=== PATIENT | female | born 1945 | race Caucasian/White ===

== ENCOUNTER → 2018-07-04 | Outpatient (CLI) | payer OTHER ==
[~2018-07-04] VITALS: Ht 157.5 cm; Wt 77.1 kg
[~2018-07-04] MED LIST: ASPIR 8181 MG PO; CRESTOR5 MG PO; ESCITALOPRAM OX10 MG PO; LOSARTAN POTAS100 MG PO; MOBIC15 MG PO; NORVASC5 MG PO; SYNTHROID25 MC1 PO; VITAMIN D1000 UNI1 PO
--- NOTE | ~2018-07-04 | HPC ---
[facility] [address] [place] [address] PAIN MANAGEMENT CONSULTATION Name: LUIS ANTONIO DAVENPORT Room #: [facility].#: [id number] Admission: 07/04/18 ������������������ Attend Phys: Neri Porras MD Discharge: ������������������ Date of : 43 Report #: [id number] THIS REPORT FOR: //name// CC: Brett Porras DATE OF SERVICE: 07/04/2018 CHIEF COMPLAINT: Low back pain with an electric shock-like sensation that goes into her hip, at times into her calf and toes. HISTORY OF PRESENT ILLNESS: The patient is a hitesh 73-year-old who is here today for the first time at the request of Dr. Izquierdo. He believes she has radiculopathy. Her pain is described by her as erratic, unpredictable and excruciating. When it occurs, it is a 10/10, sharp and stabbing, aching and cramping. It begins off in her left hip and occasionally a little bit higher in the iliac crest. It then can progress down to an area below her patella, into her calf and into her left foot. She has had limited improvement over time. She does not routinely take medication for pain. MEDICATIONS: Amlodipine, losartan and Synthroid. ALLERGIES: PENICILLIN. PAST MEDICAL HISTORY: Remarkable for thyroidectomy and hysterectomy. As a child, she had her tonsils removed. In 2018, she had cataract surgery. Dr. Izquierdo treats her for hypertension. SOCIAL HISTORY: She is retired, . Denies use of tobacco. Drinks alcohol a couple of times a week in a social setting. REVIEW OF SYSTEMS: Positive for fatigue, weakness, loss of hearing, frequent diarrhea and heat and cold intolerance. PHYSICAL EXAMINATION: GENERAL: She is very pleasant, outgoing 73-year-old, alert and oriented, with no signs of depression or anxiety. VITAL SIGNS: Her blood pressure is 148/85, heart rate 56 and respirations 14. She is 5 feet 2 with a BMI of 31.1. We discussed weight loss strategies. MUSCULOSKELETAL: She moves from a sitting to standing position, ambulates without too much discomfort. She has some pain across her low back. Range of motion is limited a bit and rotational movements, flexion and extension do not reproduce pain. Straight leg raising is not markedly painful into the leg today, but she has some pain into the left hip. Sensation and strength are normal. Deep tendon reflexes are 2+ knees, 1+ ankles, bilaterally symmetrical. [facility] [address] [place] [address] PAIN MANAGEMENT CONSULTATION Name: LUIS ANTONIO DAVENPORT Room #: [facility]#: [id number] Admission: 07/04/18 ������������������ Attend Phys: Neri Porras MD Discharge: ������������������ Date of : 43 Report #: [id number] RADIOGRAPHIC DATA: No x-rays are available to me at this time. IMPRESSION: Low back pain with radiculopathy. DISCUSSION: Just long discussion today about radicular pain and its causes. Treatment would be empiric at this time for her left unilateral symptoms radiating into the foot. Discussed risks and benefits of the epidural injection, but she would like to avoid that at this time. I talked about beginning some medication for pain and she would be interested in considering some physical therapy. I have also felt that it might be beneficial to go ahead and begin with a lumbar spine x-ray series just to look for alignment, degenerative disk disease, which may provide us some evidence before ordering a more expensive MRI. She will make her decision on an epidural injection and schedule an appointment in the future. ��������������������������������������������� ���������������������������������������� By: ��������������������������������������������� [id number] Neri Porras MD /nt
[2018-07-04 13:45] VITALS: BP 148/85
--- NOTE | 2018-07-04 13:59 | NUR ---
Pain Clinic Assessment: 1. History of Osteoarthritis: History of Rheumatoid Arthritis: 2. Height: 5 ft. 2 in. 157.5 cm. Weight: 170.0 lb. oz. 77.112 kg. Patient's BMI: 31.1 3. Vital Signs: BP: 148/85 Pulse: 56 Resp: 14 Temp: 02 Sat: 100 ECG Mon: 4. Pain Intensity: 0 5. Fall Risk: Dizziness: Y Needs help standing or walking: N Fallen in the last 3 months: N Fall risk comments: 6. Patient on Blood Thinner: None 7. History of Hypertension: Y 8. Opioid Therapy greater than 6 weeks: N Opiate Contract Signed: 9. Risk Assessment Tool Provided: LOW 10. Functional Assessment Tool: 11. Recreational Drug Use: Never Drug Type: Tobacco Use: Never Smoker Tobacco Type: Amount or Packs/day: How Many Years: Alcohol Use: Yes Frequency: Weekly Quant: 2
== END ==
LOC: PAIN 06:53
DX: M47.27 Other spondylosis with radiculopathy, lumbosacral region (principal); M43.16 Spondylolisthesis, lumbar region; M47.28 Other spondylosis with radiculopathy, sacral and sacrococcygeal region